=== PATIENT | female | born 1955 | race Two or more races ===

== ENCOUNTER 2016-06-21 16:31 | Inpatient (IN) | payer OTHER ==
[~2016-06-21] VITALS: Ht 172.7 cm; Wt 65.3 kg
[2016-06-21] MEDS ORDERED: ZOLP10TA2 PO (17:18)
[2016-06-21] MEDS ORDERED: VALS80TA26 PO (17:18)
[2016-06-21] MEDS ORDERED: ALPR2TAB2 PO (17:18)
[2016-06-21] MEDS ORDERED: TRAM50TA2 PO (17:18)
[2016-06-21] MEDS ORDERED: VENL150C2 PO (17:18)
[2016-06-21] MEDS ORDERED: TIAG4TAB PO (17:18)
[2016-06-21] MEDS ORDERED: LEVE750T4 PO (17:18)
[2016-06-21] MEDS ORDERED: ATOR20TA PO (17:18)
[2016-06-21] MEDS ORDERED: HYDR-548 PO (17:18)
[2016-06-21] MEDS ORDERED: ACETAMINOPHEN 325 MG TABLET PO PRN (17:30)
[2016-06-21] MEDS ORDERED: MAG HYDROX/AL HYDROX/SIMETH 30 ML UDC PO PRN (17:30)
[2016-06-21] MEDS: LORAZEPAM 0.5 MG TABLET PO PRN ×2 (18:42→20:13)
[2016-06-21 19:54] VITALS: BP 155/85
[2016-06-21] MEDS ORDERED: HYDROCODONE/APAP 10/325MG 1 EA TABLET ONE (21:18)
[2016-06-21] MEDS: TEMAZEPAM 7.5 MG CAPSULE PO PRN (21:20)
[2016-06-21] MEDS: HYDROCODONE/APAP 10/325MG 1 EA TABLET PO PRN (21:22)
[2016-06-21] MEDS ORDERED: CLONIDINE HCL 0.1 MG TABLET PO PRN (21:30)
[2016-06-22] MEDS ORDERED: TRAMADOL HCL 50 MG TABLET ONE (00:51)
[2016-06-22] MEDS: TRAMADOL HCL 50 MG TABLET PO PRN ×2 (00:55→09:39)
[2016-06-22] MEDS: LORAZEPAM 0.5 MG TABLET PO PRN ×2 (02:57→11:52)
[2016-06-22] MEDS ORDERED: HYDROCODONE/APAP 10/325MG 1 EA TABLET ONE (06:46)
[2016-06-22] MEDS: HYDROCODONE/APAP 10/325MG 1 EA TABLET PO PRN ×2 (06:49→17:15)
[2016-06-22 07:26] LABS: ALBUMIN 3.8 g/dL (3.4-5.0); BILIRUBIN,TOTAL 0.7 mg/dL (0.2-1.0); CALCIUM, SERUM 8.9 mg/dL (8.5-10.1); CREATININE 0.6 mg/dL (0.6-1.3); POTASSIUM 4.3 mmol/L (3.5-5.1); TOTAL PROTEIN, SERUM 7.1 g/dL (6.4-8.2)
[2016-06-22 08:25] VITALS: BP 153/86
[2016-06-22] MEDS ORDERED: WHITE PETROLATUM 28.35 GM TUBE TP PRN (08:30)
[2016-06-22] MEDS ORDERED: VENLAFAXINE XR 150 MG CAP.SR.24H PO SCH (09:00)
[2016-06-22] MEDS: ATORVASTATIN 10 MG TABLET PO SCH (09:17)
[2016-06-22] MEDS: LEVETIRACETAM (250 MG) 250 MG TABLET PO SCH ×2 (09:18→20:28)
[2016-06-22] MEDS: VALSARTAN 80 MG TABLET PO SCH (09:18)
[2016-06-22] MEDS: NICOTINE PATCH (7MG) 7 MG PATCH.TD24 TD SCH (11:32)
[2016-06-22] MEDS: VENLAFAXINE XR 150 MG CAP.SR.24H PO SCH (14:36)
[2016-06-22 16:12] VITALS: BP 152/92
[2016-06-22] MEDS ORDERED: TIAGABINE HCL 4 MG TABLET PO SCH ×2 (17:00)
[2016-06-22 20:26] VITALS: BP 137/75
[2016-06-22] MEDS ORDERED: MIRTAZAPINE 15 MG TABLET PO SCH (22:00)
[2016-06-22] MEDS: TEMAZEPAM 7.5 MG CAPSULE PO PRN (22:40)
[2016-06-23] MEDS: TRAMADOL HCL 50 MG TABLET PO PRN ×3 (00:14→22:05)
[2016-06-23] MEDS: HYDROCODONE/APAP 10/325MG 1 EA TABLET PO PRN ×3 (06:32→17:33)
[2016-06-23 07:23] LABS: BASOPHILS # (AUTO) 0.1 /CMM (0.0-0.2); BASOPHILS % (AUTO) 1.1 % (0.0-2.0); DIFF TOTAL % 100 %; EOSINOPHILS # (AUTO) 0.4 /CMM (0.0-0.7); EOSINOPHILS % (AUTO) 4.3 % (0.0-6.0); HEMATOCRIT 42 % (33-45); HEMOGLOBIN 13.9 g/dL (11.5-14.8); LYMPHOCYTES # (AUTO) 1.4 /CMM (0.8-4.8); LYMPHOCYTES % (AUTO) 17.1 % (20.0-44.0); MEAN CORPUSCULAR HEMOGLOBIN 30 PG (26.0-33.0); MEAN CORPUSCULAR HGB CONC 34 g/dl (31.0-36.0); MEAN CORPUSCULAR VOLUME 91 fL (82-100); MONOCYTES # (AUTO) 0.8 /CMM (0.1-1.30); MONOCYTES % (AUTO) 9.1 % (2.0-12.0); NEUTROPHILS # (AUTO) 5.7 /CMM (1.8-8.9); NEUTROPHILS % (AUTO) 68.4 % (43.0-81.0); PLATELET COUNT (AUTO) 130 /CMM (150-450); RED BLOOD CELL COUNT(AUTO) 4.59 MIL/uL (4.0-5.2); WHITE BLOOD COUNT (AUTO) 8.3 K/uL (4.3-11.0)
[2016-06-23 07:48] LABS: ALBUMIN 3.8 g/dL (3.4-5.0); BILIRUBIN,DIRECT 0.1 mg/dL (0.0-0.2); BILIRUBIN,TOTAL 0.5 mg/dL (0.2-1.0); INDIRECT BILIRUBIN 0.4 mg/dL (0.0-1.1); PHOSPHORUS 3.9 mg/dL (2.5-4.9); TOTAL PROTEIN, SERUM 6.8 g/dL (6.4-8.2)
[2016-06-23 07:55] LABS: CHOLESTEROL 175 mg/dL (<200); HDL CHOLESTEROL 73 mg/dL (40-60); LDL 91 mg/dL (0-99); TRIGLYCERIDES 88 mg/dL (30-150)
[2016-06-23 07:56] LABS: THYROID STIMULATING HORMONE 1.294 uIU/mL (0.358-3.74)
[2016-06-23 08:28] VITALS: BP 148/77
[2016-06-23] MEDS: LEVETIRACETAM (250 MG) 250 MG TABLET PO SCH ×2 (08:45→22:03)
[2016-06-23] MEDS: VENLAFAXINE XR 150 MG CAP.SR.24H PO SCH (08:46)
[2016-06-23] MEDS: VALSARTAN 80 MG TABLET PO SCH (08:47)
[2016-06-23] MEDS: LORAZEPAM 0.5 MG TABLET PO PRN ×2 (08:47→16:04)
[2016-06-23] MEDS: NICOTINE PATCH (7MG) 7 MG PATCH.TD24 TD SCH (08:48)
[2016-06-23] MEDS: ATORVASTATIN 10 MG TABLET PO SCH (08:51)
[2016-06-23 16:00] VITALS: BP 128/78
[2016-06-23 20:00] VITALS: BP 122/73
[2016-06-23] MEDS: MIRTAZAPINE 15 MG TABLET PO SCH (22:03)
[2016-06-23] MEDS: TEMAZEPAM 7.5 MG CAPSULE PO PRN (23:24)
[2016-06-24 08:00] VITALS: BP 130/78
[2016-06-24] MEDS: VALSARTAN 80 MG TABLET PO SCH (08:20)
[2016-06-24] MEDS: LEVETIRACETAM (250 MG) 250 MG TABLET PO SCH ×2 (08:20→20:56)
[2016-06-24] MEDS: NICOTINE PATCH (7MG) 7 MG PATCH.TD24 TD SCH (08:21)
[2016-06-24] MEDS: ATORVASTATIN 10 MG TABLET PO SCH (08:21)
[2016-06-24] MEDS: HYDROCODONE/APAP 10/325MG 1 EA TABLET PO PRN ×2 (08:21→16:26)
[2016-06-24] MEDS: VENLAFAXINE XR 150 MG CAP.SR.24H PO SCH (08:21)
[2016-06-24] MEDS: LORAZEPAM 0.5 MG TABLET PO PRN (11:10)
[2016-06-24] MEDS ORDERED: VENLAFAXINE XR 75 MG CAP.SR.24H PO ONE (12:30)
[2016-06-24] MEDS: TRAMADOL HCL 50 MG TABLET PO PRN ×2 (13:59→20:56)
[2016-06-24 16:00] VITALS: BP 143/65
[2016-06-24 20:00] VITALS: BP 139/80
[2016-06-24] MEDS: TEMAZEPAM 7.5 MG CAPSULE PO PRN (22:43)
[2016-06-24] MEDS: MIRTAZAPINE 15 MG TABLET PO SCH (22:43)
[2016-06-25] MEDS: HYDROCODONE/APAP 10/325MG 1 EA TABLET PO PRN ×2 (02:56→15:09)
[2016-06-25 08:00] VITALS: BP 130/83
[2016-06-25] MEDS: ATORVASTATIN 10 MG TABLET PO SCH (08:20)
[2016-06-25] MEDS: NICOTINE PATCH (7MG) 7 MG PATCH.TD24 TD SCH (08:20)
[2016-06-25] MEDS: LEVETIRACETAM (250 MG) 250 MG TABLET PO SCH ×2 (08:20→21:08)
[2016-06-25] MEDS: LORAZEPAM 0.5 MG TABLET PO PRN (08:21)
[2016-06-25] MEDS: VENLAFAXINE XR 75 MG CAP.SR.24H PO SCH (08:21)
[2016-06-25] MEDS: clonazePAM 0.5 MG TABLET PO SCH ×2 (10:01→16:49)
[2016-06-25] MEDS: VALSARTAN 80 MG TABLET PO SCH (10:02)
[2016-06-25] MEDS: MAGNESIUM HYDROXIDE 30 ML UDC PO PRN (11:24)
[2016-06-25] MEDS: TRAMADOL HCL 50 MG TABLET PO PRN ×2 (12:45→18:52)
[2016-06-25 16:00] VITALS: BP 151/80
[2016-06-25] MEDS: CYCLOBENZAPRINE 10 MG TABLET PO PRN (16:48)
[2016-06-25] MEDS ORDERED: DOCUSATE SODIUM 100 MG CAPSULE PO SCH (17:00)
[2016-06-25 20:00] VITALS: BP 132/73
[2016-06-25] MEDS: MIRTAZAPINE 15 MG TABLET PO SCH (21:08)
[2016-06-26] MEDS: HYDROCODONE/APAP 10/325MG 1 EA TABLET PO PRN ×3 (00:13→17:52)
[2016-06-26] MEDS: TEMAZEPAM 7.5 MG CAPSULE PO PRN ×2 (01:18→23:28)
[2016-06-26 08:14] VITALS: BP 125/69
[2016-06-26] MEDS: NICOTINE PATCH (7MG) 7 MG PATCH.TD24 TD SCH (09:00)
[2016-06-26] MEDS: ATORVASTATIN 10 MG TABLET PO SCH (09:10)
[2016-06-26] MEDS: VENLAFAXINE XR 75 MG CAP.SR.24H PO SCH (09:10)
[2016-06-26] MEDS: clonazePAM 0.5 MG TABLET PO SCH ×2 (09:11→17:10)
[2016-06-26] MEDS: LEVETIRACETAM (250 MG) 250 MG TABLET PO SCH ×2 (09:11→20:31)
[2016-06-26] MEDS: VALSARTAN 80 MG TABLET PO SCH (09:19)
[2016-06-26] MEDS: MAGNESIUM HYDROXIDE 30 ML UDC PO PRN (13:12)
[2016-06-26] MEDS: TRAMADOL HCL 50 MG TABLET PO PRN ×2 (13:14→22:05)
[2016-06-26] MEDS: LORAZEPAM 0.5 MG TABLET PO PRN (14:07)
[2016-06-26 16:02] VITALS: BP 145/84
[2016-06-26] MEDS: CYCLOBENZAPRINE 10 MG TABLET PO PRN (19:49)
[2016-06-26 19:53] VITALS: BP 107/54
[2016-06-26] MEDS: BISACODYL (5 MG) 5 MG TABLET.DR PO PRN (19:54)
[2016-06-26] MEDS: MIRTAZAPINE 15 MG TABLET PO SCH (21:09)
[2016-06-27] MEDS: HYDROCODONE/APAP 10/325MG 1 EA TABLET PO PRN ×3 (04:49→21:04)
[2016-06-27 08:00] VITALS: BP 150/90
[2016-06-27] MEDS: TRAMADOL HCL 50 MG TABLET PO PRN ×2 (08:31→18:15)
[2016-06-27] MEDS: clonazePAM 0.5 MG TABLET PO SCH ×2 (08:32→17:24)
[2016-06-27] MEDS: NICOTINE PATCH (7MG) 7 MG PATCH.TD24 TD SCH (08:32)
[2016-06-27] MEDS: LEVETIRACETAM (250 MG) 250 MG TABLET PO SCH ×2 (08:32→21:03)
[2016-06-27] MEDS: ATORVASTATIN 10 MG TABLET PO SCH (08:32)
[2016-06-27] MEDS: VALSARTAN 80 MG TABLET PO SCH (08:33)
[2016-06-27] MEDS: VENLAFAXINE XR 75 MG CAP.SR.24H PO SCH (08:33)
[2016-06-27] MEDS: LORAZEPAM 0.5 MG TABLET PO PRN (12:15)
[2016-06-27 16:00] VITALS: BP 126/75
[2016-06-27] MEDS: BISACODYL (5 MG) 5 MG TABLET.DR PO PRN (19:35)
[2016-06-27 19:52] VITALS: BP 137/72
[2016-06-27] MEDS ORDERED: MIRTAZAPINE 15 MG TABLET PO SCH (22:00)
[2016-06-27] MEDS: TEMAZEPAM 7.5 MG CAPSULE PO PRN (22:56)
[2016-06-27 23:00] VITALS: BP 138/80
[2016-06-28 08:08] VITALS: BP 124/72
[2016-06-28] MEDS: HYDROCODONE/APAP 10/325MG 1 EA TABLET PO PRN ×2 (08:40→16:44)
[2016-06-28] MEDS: NICOTINE PATCH (7MG) 7 MG PATCH.TD24 TD SCH (08:40)
[2016-06-28] MEDS: clonazePAM 0.5 MG TABLET PO SCH ×2 (08:40→18:08)
[2016-06-28] MEDS: VENLAFAXINE XR 75 MG CAP.SR.24H PO SCH (08:40)
[2016-06-28] MEDS: VALSARTAN 80 MG TABLET PO SCH (08:41)
[2016-06-28] MEDS: ATORVASTATIN 10 MG TABLET PO SCH (08:41)
[2016-06-28] MEDS: LEVETIRACETAM (250 MG) 250 MG TABLET PO SCH ×2 (08:41→21:13)
[2016-06-28] MEDS: TRAMADOL HCL 50 MG TABLET PO PRN ×2 (13:00→21:57)
[2016-06-28 16:03] VITALS: BP 119/76
[2016-06-28 20:15] VITALS: BP 104/66
[2016-06-28] MEDS ORDERED: MIRTAZAPINE 15 MG TABLET PO SCH (22:00)
[2016-06-28] MEDS: TEMAZEPAM 7.5 MG CAPSULE PO PRN (23:39)
[2016-06-29] MEDS: HYDROCODONE/APAP 10/325MG 1 EA TABLET PO PRN (04:19)
[2016-06-29] MEDS: LEVETIRACETAM (250 MG) 250 MG TABLET PO SCH (08:58)
[2016-06-29] MEDS: ATORVASTATIN 10 MG TABLET PO SCH (08:58)
[2016-06-29] MEDS: NICOTINE PATCH (7MG) 7 MG PATCH.TD24 TD SCH (08:58)
[2016-06-29] MEDS: VENLAFAXINE XR 75 MG CAP.SR.24H PO SCH (08:58)
[2016-06-29] MEDS: clonazePAM 0.5 MG TABLET PO SCH (08:59)
[2016-06-29] MEDS: VALSARTAN 80 MG TABLET PO SCH (08:59)
[2016-06-29] MEDS: TRAMADOL HCL 50 MG TABLET PO PRN (09:02)
[2016-06-29 09:30] VITALS: BP 127/79
== END 2016-06-29 12:40 | disposition home or self-care (01) | DRG 885 ==
LOC: GPS 16:31
PROVIDERS: ADMIT Psychiatry & Neurology Psychosomatic Medicine; ATTEND Internal Medicine
DX: F33.1 Major depressive disorder, recurrent, moderate (principal); R45.851 Suicidal ideations; E78.5 Hyperlipidemia, unspecified; F17.210 Nicotine dependence, cigarettes, uncomplicated; G40.909 Epilepsy, unspecified, not intractable, without status epilepticus; I10 Essential (primary) hypertension; K21.9 Gastro-esophageal reflux disease without esophagitis; Z59.0 Homelessness; Z91.5 Personal history of self-harm; F10.20 Alcohol dependence, uncomplicated; F39 Unspecified mood [affective] disorder; F43.10 Post-traumatic stress disorder, unspecified
CPT/HCPCS: 36415; 80053-TC; 80061-TC; 80076-TC; 82746; 83735-TC; 84100-TC; 84443-TC; 85025-TC; 87081-TC